=== PATIENT | female | born 1965 | race Two or more races ===

== ENCOUNTER 2024-08-13 12:49 | Emergency (ER) | payer OTHER ==
[~2024-08-13] VITALS: Ht 177.8 cm; Wt 101.6 kg
[2024-08-13] MEDS ORDERED: KETOROLAC TROMETHAMINE 30 MG VIAL IM STA (14:47)
[2024-08-13] MEDS ORDERED: DEXAMETHASONE SODIUM PHOSPHATE 4 MG/ML VIAL IM STA (14:48)
[2024-08-13] MEDS ORDERED: KETOROLAC TROMETHAMINE 30 MG VIAL ONE (15:04)
[2024-08-13] MEDS ORDERED: DEXAMETHASONE SODIUM PHOSPHATE 4 MG/ML VIAL ONE (15:04)
== END 2024-08-13 17:38 | disposition home or self-care (01) ==
LOC: ER 12:52
DX: S83.92XA Sprain of unspecified site of left knee, initial encounter (principal); W18.39XA Other fall on same level, initial encounter; Y93.89 Activity, other specified; Y92.89 Other specified places as the place of occurrence of the external cause; Y99.9 Unspecified external cause status
CPT/HCPCS: 73564; 96372; 99283; J1100; J1885